=== PATIENT | male | born 1950 | race Caucasian/White ===

== ENCOUNTER 2017-09-17 08:07 | Observation (INO) ==
[2017-09-17] MEDS ORDERED: Chlorhexidine Gluconate 2% 1 Pack (2 Cloths) TOPICAL SCH (09:15)
[2017-09-17] MEDS ORDERED: Metoprolol Tartrate 25 MG Tablet PO SCH (09:15)
[2017-09-17] MEDS ORDERED: Sodium Chlor 0.9% Inj 500 ML IV.SIG SCH (10:00)
[2017-09-17 10:19] LABS: Baso # (Auto) 0.1 th/mm3 (0.0-0.2); Baso % (Auto) 2.6 % (0.0-2.0); Eos # (Auto) 0.1 th/mm3 (0.0-0.4); Eos % (Auto) 1.4 % (0.0-4.0); Hemoglobin 13.2 gm/dL (13.0-17.0); Lymph % (Auto) 17.6 % (9.0-44.0); Mean Corpuscular Hemoglobin 31.2 pg (27.0-34.0); Mean Corpuscular Volume 91.7 fL (80.0-100.0); Mean Platelet Volume 11.5 fL (7.0-11.0); Mono # (Auto) 0.6 th/mm3 (0.0-0.9); Mono % (Auto) 11.4 % (0.0-8.0); Neut # (Auto) 3.7 th/mm3 (1.8-7.7); Platelet Count 67 th/mm3 (150-450); Red Blood Count 4.25 mil/mm3 (4.50-5.90); Red Cell Distribution Width 14.9 % (11.6-17.2); White Blood Count 5.5 th/mm3 (4.0-11.0)
[2017-09-17 10:27] LABS: Activated Partial Thrombo Time 29.2 sec (24.3-30.1); INR 1.4 Ratio; Prothrombin Time 14.5 sec (9.8-11.6)
[2017-09-17 10:43] LABS: Calcium 9.1 mg/dL (8.5-10.1); Carbon Dioxide 22.3 meq/L (21.0-32.0); Potassium 3.9 meq/L (3.5-5.1)
[2017-09-17 10:52] LABS: Platelet Morphology Normal (Normal); Stomatocytes 1+
[2017-09-17] MEDS ORDERED: Famotidine PF Inj 20 MG/2 ML Vial ONE (11:51)
[2017-09-17] MEDS ORDERED: Lidocaine PF 1% Inj 5 ML Syringe INFILTRATN ONE (12:00)
[2017-09-17] MEDS ORDERED: Sodium Chlor 0.9% Inj 500 ML IV.SIG ONE (12:00)
[2017-09-17] MEDS ORDERED: Iohexol 300 MG/ML 50 ML Vial (for Rad Diag) IVCONTRAST ONE ×2 (12:00→15:26)
[2017-09-17] MEDS ORDERED: Heparin - SQ 10,000 UNITS/ML Vial SQ ONE (12:13)
[2017-09-17] MEDS ORDERED: Heparin 10,000 UNITS/10 ML Vial (for IV use) ONE (12:13)
[2017-09-17] MEDS ORDERED: Protamine Sulfate Inj 50 MG/5 ML Vial ONE (12:13)
[2017-09-17] MEDS ORDERED: Bupivacaine/Epinephrine PF Inj 0.5% 30 ML Vial ONE (12:14)
[2017-09-17] MEDS ORDERED: fentaNYL Citrate Inj 100 MCG/2 ML Ampul ONE (14:46)
[2017-09-17] MEDS ORDERED: *morphine SULFATE 4 MG/ML PERIprocedure ONLY ONE (14:55)
--- NOTE | 2017-09-17 15:18 | MP ---
cc: Gary Basilio MD DATE OF OPERATION: 09/17/2017 PREOPERATIVE DIAGNOSIS: Bilateral lower extremity ischemia, left greater than right. POSTOPERATIVE DIAGNOSIS: Bilateral lower extremity ischemia, left greater than right. OPERATIVE PROCEDURE: Aortofemoral arteriogram, left external iliac, percutaneous balloon angioplasty/stent placement. 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 SURGEON: Gary Basilio MD CAREER REPRESENTATIVE: JOHANNA Worthy ANESTHESIA: Local, MAC. DESCRIPTION OF PROCEDURE: With the patient in the supine position and under IV sedation, the lower abdomen, both groins and thighs were prepped with Betadine and draped in a sterile fashion. Appropriate IV antibiotic prophylaxis was administered and, following a protocol timeout, the skin and subcutaneous tissue surrounding the proposed right common femoral access site preemptively infiltrated with 0.5% Marcaine with epinephrine. Utilizing ultrasound guidance, an 18-gauge needle was inserted into the right mid-common femoral lumen. Ultrasound revealed extensive calcified atherosclerotic plaque throughout the common femoral lumen, primarily along the posterior wall. Nonetheless, access was achieved with ease, a J-wire advanced under fluoroscopic guidance into the iliac artery. The 18-gauge needle was exchanged for a 5-Mauritian hemostatic sheath, which was navigated under fluoroscopic guidance over the J-wire. An Advantage guidewire/Omni catheter combination was guided into the sub-renal aorta. Utilizing contrast, the power injection in conjunction with digital C-arm fluoroscopic imaging, stepping technique, complete aortofemoral arteriogram was then accomplished with findings as follows: The distal aorta was widely patent. The two previously placed external iliac stents were widely patent as well. An eccentric, partially calcified focal plaque was present near the origin of the left common iliac, but did not appear to create flow restriction, did not appear hemodynamically significant. Instead a focal eccentric stenosis existed within the left external iliac midway between the external origin and inguinal ligament. This focal construction created at least a 70-80% stenosis over a 30 mm length. The right and left common femoral arteries exhibited eccentric calcified plaque along their posterior berg, more heavily deposited on the right than left, creating diffuse 40-50% constriction throughout the right common femoral lumen and minimal, hemodynamically insignificant appearing disease on the left. Instead, on the left side, the origin of the SFA exhibited a focal high-grade stenotic lesion producing 60-70%. Both SFAs were diffusely diseased. The left SFA occluded proximal to the adductor level. The popliteal was occluded from the adductor to the patellar level. Geniculate collaterals reconstituted the below-knee popliteal. On the right side, scattered disease was present throughout the SFA and one focal area of 60% stenosis at the adductor level. The right popliteal and below-knee runoff was normal. The patient was systemically heparinized with 5000 units. The angled Glidewire was navigated into the left common femoral lumen and the 5-Mauritian sheath exchanged for a 45 cm, 6-Mauritian sheath which was guided into the left mid-common femoral lumen. Utilizing roadmapping guidance, an attempt was undertaken to cross the long left SFA/above-knee chronic total occlusion. An initial attempt was made with an Advantage guidewire, Quick-Cross catheter combination, but was unsuccessful. This was switched out to a 0.18, 25 gram weighted wire supported with a [place] [employer] CXI and braided catheters. Subintimal dissection was accomplished almost to the distal occluding cap which could not be safely crossed due to heavy calcification. The left external iliac stenosis was angioplastied with a 6 x 40 mm balloon, inflated to 8 atmospheres, 2 separate inflations of 2 minutes each, followed by deployment of a 7 x 28 mm balloon expandable stent. Completion angiogram confirmed complete eradication of the iliac stenosis with no technical defects and significantly improved flow beyond. The long 6-Mauritian sheath was exchanged for a short 6-Mauritian sheath, which was secured with a skin suture of 2-0 silk. Heparin was not reversed. The patient returned to Post-Anesthesia in stable condition, having tolerated the procedure well. MD ADAL Quick/JODI , 02:43 PM , 03:17 PM
--- NOTE | 2017-09-17 16:39 | ECG ---
Date Performed: 09/17/2017 Time Performed: 09:03:27 PTAGE: 67 years EKG: Sinus rhythm POSSIBLE LEFT ATRIAL ENLARGEMENT RIGHT BUNDLE BRANCH BLOCK ABNORMAL ECG NO PREVIOUS TRACING DOCTOR: Yolis Viera Interpretating Date/Time 09/17/2017 16:38:05
[2017-09-17] MEDS ORDERED: Atropine Inj 1 MG/ML Vial IV.PUSH STA (17:17)
[2017-09-17] MEDS ORDERED: Metoprolol Inj 5 MG/5 ML Vial IV.PUSH PRN (17:17)
[2017-09-17] MEDS ORDERED: Metoprolol Tartrate 25 MG Tablet PO PRN (22:04)
== END 2017-09-18 09:47 | disposition home or self-care (01) ==
LOC: HCPC 08:07 → HCVO 08:07
PROVIDERS: ADMIT Surgery Vascular Surgery; ATTEND Surgery Vascular Surgery